=== PATIENT | female | born 1945 | race Caucasian/White ===

== ENCOUNTER 2021-06-12 14:26 | Inpatient (IN) | payer OTHER ==
--- NOTE | 2021-06-12 15:39 | RAD REPORT ---
EXAM DESCRIPTION: Jonn Single View06/12/2021 3:31 pm CLINICAL HISTORY: Shortness of breath COMPARISON: 2019 FINDINGS: Moderate bilateral pulmonary opacities. Heart is normal size IMPRESSION: Moderate bilateral pulmonary opacities probably pneumonia
[2021-06-12 17:47] LABS: Absolute Lymphocytes (CBC) 1.1 K/uL (0.7-4.9); Basophils % 0.1 % (0-1.3); Hematocrit 43.2 % (36.0-45.0); Lymphocytes % 12.6 % (15.3-44.8); MPV 7.4 fL (7.6-11.3); RBC Red Blood Cell Count 4.85 M/uL (3.86-4.86)
[2021-06-12 18:01] LABS: Protime INR 1.02
[2021-06-12 18:20] LABS: ALT/SGPT 63 U/L (12-78); AST/SGOT 57 U/L (15-37); Albumin 2.6 g/dL (3.4-5.0); Alkaline Phosphatase 163 U/L (45-117); BUN Blood Urea Nitrogen 22 mg/dL (7-18); Bicarbonate 25 mmol/L (21-32); Bilirubin Direct 0.3 mg/dL (0-0.2); Bilirubin Total 0.6 mg/dL (0.2-1.0); Glucose Level 118 mg/dL (74-106); Lipase 207 U/L (73-393); Potassium 3.9 mmol/L (3.5-5.1); Protein, Total 7.5 g/dL (6.4-8.2); Sodium Level 134 mmol/L (136-145); Troponin (Emerg Dept Use Only) < 0.02 ng/mL (0.0-0.045)
[2021-06-12 18:39] LABS: Ferritin 999.1 ng/mL (8-388)
--- NOTE | 2021-06-12 18:52 | RAD REPORT ---
EXAM DESCRIPTION: CT - Chest For Pe Angio - 06/12/2021 6:37 pm CLINICAL HISTORY: sob COMPARISON: June 12, 2021 chest x-ray TECHNIQUE: Dynamically enhanced axial 3 mm thick images of the chest were obtained during administra tion of <100> mL Isovue 370 IV contrast. Coronal and oblique reconstruction images were generated and reviewed. Exam utilizes a protocol for optimal evaluation of pulmonary arterial tree. Maximum intensity projections 3D imaging was utilized All CT scans are performed using dose optimization technique as appropriate and may include automated exposure control or mA/KV adjustment according to patient size. FINDINGS: A pulmonary embolus is not seen. A thoracic aortic aneurysm is not noted. A pleural effusion is not seen. A pericardial effusion is not seen. Moderate bilateral ground-glass opacities within the lungs IMPRESSION: Negative for a pulmonary embolism. Moderate bilateral ground-glass opacities within the lungs can be seen with Covid pneumonia
--- NOTE | 2021-06-12 19:07 | EDPHYS ---
Physician Documentation [facility] Name: Josh Baugh Age: 76 yrs Sex: Female : 1945 Arrival Date: 06/12/2021 Time: 14:27 Bed External Waiting Private MD: ED Physician Lencho Wilkerson HPI: 06/12 20:45 This 76 yrs old Female presents to ER via Wheelchair with complaints of Shortness Of kb Breath - covid+. 20:45 The patient or guardian reports cough, that is intermittent, described as mild, with no kb sputum. Onset: The symptoms/episode began/occurred 2 week(s) ago. Severity of symptoms: At their worst the symptoms were moderate, in the emergency department the symptoms are unchanged. Modifying factors: The symptoms are alleviated by nothing, the symptoms are aggravated by nothing. Associated signs and symptoms: The patient has no apparent associated signs or symptoms. The patient has not experienced similar symptoms in the past. The patient has been recently seen by a physician:. Pt states she was diagnosed with covid 2 weeks ago. States fever has resolved, but cough remains. Went to [place] to have regeneron infusion and was told she was out of the window and her oxygen sat was too low so she needed to come here. Pt denies shortness of breath. . Historical: - Allergies: 14:44 No Known Allergies; ss - Immunization history:: Client reports having NOT received the Covid vaccine. - Social history:: Smoking status: Patient denies any tobacco usage or history of. ROS: 20:44 Constitutional: Negative for fever, chills, and weight loss. kb 20:44 Respiratory: Positive for cough, Negative for dyspnea on exertion, hemoptysis, orthopnea, pleurisy, shortness of breath, sputum production, wheezing. 20:44 All other systems are negative. Exam: 18:07 Constitutional: This is a well developed, well nourished patient who is awake, alert, kb and in no acute distress. Head/Face: Normocephalic, atraumatic. ENT: Moist Mucous membranes Cardiovascular: Regular rate and rhythm with a normal S1 and S2. No gallops, murmurs, or rubs. No pulse deficits. Respiratory: Respirations even and unlabored. No increased work of breathing, no retractions or nasal flaring. Abdomen/GI: Soft, non-tender. No distention Skin: Warm, dry with normal turgor. Normal color. MS/ Extremity: Pulses equal, no cyanosis. Neurovascular intact. Full, normal range of motion. Neuro: Awake and alert, GCS 15, oriented to person, place, time, and situation. Moves all extremities. Normal gait. Psych: Awake, alert, with orientation to person, place and time. Behavior, mood, and affect are within normal limits. 18:07 ECG was reviewed by the Attending Physician. Vital Signs: 14:39 BP 109 / 58; Pulse 90; Resp 24 S; Temp 98.2(O); Pulse Ox 85% on 2 lpm NC; Weight 77.11 ss kg; Height 5 ft. 11 in. (180.34 cm); Pain 0/10; 17:42 BP 124 / 66; Pulse 97; Resp 18; Temp 99.7; Pulse Ox 92% on 12 lpm NC; bp 18:19 BP 119 / 63; Pulse 88; Resp 16; Pulse Ox 95% on NC; bp 20:06 BP 138 / 63; Pulse 87; Resp 20; Pulse Ox 93% on 12 lpm NC; df1 14:39 Body Mass Index 23.71 (77.11 kg, 180.34 cm) ss MDM: 16:50 Patient medically screened. kb 18:59 Data reviewed: vital signs, nurses notes. kb 19:04 Data interpreted: Pulse oximetry: on room air is 75 %. Interpretation: hypoxia. Plan: kb O2 by NC applied. Counseling: I had a detailed discussion with the patient and/or guardian regarding: the historical points, exam findings, and any diagnostic results supporting the discharge/admit diagnosis, lab results, radiology results, the need for further work-up and treatment in the hospital. Physician consultation: Fred BARTH was contacted at 19:05, regarding admission, to the telemetry unit. patient's condition, and will see patient in ED. 06/12 16:50 Order name: BMP 06/12 16:50 Order name: Blood Culture Adult (2) 06/12 16:50 Order name: C-Reactive Protein 06/12 16:50 Order name: CBC with Diff 06/12 16:50 Order name: D-Dimer 06/12 16:50 Order name: Ferritin 06/12 16:50 Order name: LFT's; Complete Time: 18:41 kb 06/12 16:50 Order name: Lactate; Complete Time: 18:14 kb 06/12 16:50 Order name: Lipase; Complete Time: 18:41 kb 06/12 16:50 Order name: PT-INR; Complete Time: 18:14 kb 06/12 16:50 Order name: Procalcitonin; Complete Time: 18:49 kb 06/12 16:50 Order name: Ptt, Activated; Complete Time: 18:14 kb 06/12 16:50 Order name: Troponin (emerg Dept Use Only); Complete Time: 18:41 kb 06/12 16:50 Order name: COVID-19 SARS RT PCR (Document "Date of Onset" if Symptomatic); Complete kb Time: 18:49 06/12 14:45 Order name: XRAY Chest (1 view); Complete Time: 15:47 ss 06/12 16:50 Order name: EKG; Complete Time: 16:51 kb 06/12 16:50 Order name: Cardiac monitoring; Complete Time: 17:41 kb 06/12 16:50 Order name: Droplet/Contact Precautions; Complete Time: 17:41 kb 06/12 16:50 Order name: EKG - Nurse/Tech; Complete Time: 18:01 kb 06/12 16:50 Order name: IV Start; Complete Time: 17:41 kb 06/12 16:50 Order name: Labs collected and sent; Complete Time: 17:41 kb 06/12 16:50 Order name: Basic Metabolic Panel; Complete Time: 18:41 EDMS 06/12 16:50 Order name: Blood Culture EDNE 06/12 16:50 Order name: C-Reactive Protein; Complete Time: 18:41 EDMS 06/12 16:50 Order name: CBC with Automated Diff; Complete Time: 18:14 EDMS 06/12 16:50 Order name: D-Dimer; Complete Time: 18:14 EDMS 06/12 16:50 Order name: Ferritin; Complete Time: 18:41 EDNE 06/12 18:07 Order name: CT Chest For PE Angio; Complete Time: 18:58 kb 06/12 19:33 Order name: CONS Physician Consult EDNE 06/12 16:50 Order name: O2 Per Protocol; Complete Time: 17:41 kb 06/12 16:50 Order name: O2 Sat Monitoring; Complete Time: 17:41 kb EC:07 Rate is 86 beats/min. Rhythm is regular. QRS [place] is Normal. OH interval is normal at kb 150 msec. QRS interval is normal at 78 msec. QT interval is normal at 394 msec. Administered Medications: 19:58 Drug: SOLU-Medrol (methylPrednisoLONE) 125 mg Route: IVP; Site: left antecubital; df1 Disposition Summary: 06/12/21 19:06 Hospitalization Ordered Hospitalization Status: Inpatient Admission kb Provider: Parveen Ritchie Condition: Stable kb Problem: new kb Symptoms: are unchanged kb Bed/Room Type: Standard kb Location: Intensive Care Unit(06/12/21 20:07) cg Room Assignment: 1-(06/12/21 20:07) cg Diagnosis - Coronavirus infection, unspecified kb - Pneumonia, unspecified organism kb - Hypoxia kb Forms: - Medication Reconciliation Form kb - SBAR form kb Addendum: 06/14/2021 09:14 Co-signature as Attending Physician, Lencho Wilkerson MD I agree with the assessment and k dr plan of care. Signatures: Dispatcher [employer] EDNE Carmelita Baron, SCREW MACHINE SETTER-C SCREW MACHINE SETTER-Lencho Perry MD MD [facility] Radha Bowens RN RN ss Jeremy Hussein PA PA cp Garcia, Cindy, AGNIESZKA RN cg Sanam Rucker df1 Corrections: (The following items were deleted from the chart) 06/12 20:07 19:06 Telemetry/MedSurg (Inpatient) kb cg 20:07 19:06 kb cg 20:47 20:45 Pt states she was diagnosed with covid 2 weeks ago. States fever has resolved, kb but cough remains. Went to [place] to have regeneron infusion and was told she was out of the window and her oxygen sat was too low so she needed to come here. kb
--- NOTE | 2021-06-12 19:07 | ER ---
Nurse's Notes [facility] Name: Josh Baugh Age: 76 yrs Sex: Female : 1945 Arrival Date: 06/12/2021 Time: 14:27 Bed External Waiting Private MD: Diagnosis: Coronavirus infection, unspecified;Pneumonia, unspecified organism;Hypoxia Presentation: 06/12 14:39 Chief complaint: Patient's son or daughter states: "She has COVID and she is probably ss out of the infections stage, but she is probably in the pulmonary stage." Pt was seen at [place] to have a Regeneron infusion, but was told to come to ER as her O2 level was low. Denies SOB. 75% on RA upon arrival. Coronavirus screen: Client denies travel out of the [place] in the last 14 days. Ebola Screen: Patient denies exposure to infectious person. Patient denies travel to an Ebola-affected area in the 21 days before illness onset. Initial Sepsis Screen: Does the patient meet any 2 criteria? No. Patient's initial sepsis screen is negative. Does the patient have a suspected source of infection? No. Patient's initial sepsis screen is negative. Risk Assessment: Do you want to hurt yourself or someone else? Patient reports no desire to harm self or others. Onset of symptoms was May 27, 2021. 14:39 Method Of Arrival: Wheelchair ss 14:39 Acuity: LORI 2 ss Triage Assessment: 16:53 General: Appears in no apparent distress. uncomfortable, Behavior is calm, cooperative, bp appropriate for age. Respiratory: Reports shortness of breath at rest Onset: The symptoms/episode began/occurred at an unknown time. the patient has moderate shortness of breath. Historical: - Allergies: 14:44 No Known Allergies; ss - Immunization history:: Client reports having NOT received the Covid vaccine. - Social history:: Smoking status: Patient denies any tobacco usage or history of. Screenin:50 Abuse screen: Denies threats or abuse. Denies injuries from another. Nutritional bp screening: No deficits noted. Tuberculosis screening: No symptoms or risk factors identified. 17:42 Fall Risk bp Assessment: 16:51 Pain: Denies pain. Cardiovascular: Rhythm is. Respiratory: Airway is patent Respiratory bp effort is even, unlabored, Breath sounds are diminished in right middle lobe, left lower lobe and right lower lobe. 18:20 Reassessment: No changes from previously documented assessment. bp Vital Signs: 14:39 BP 109 / 58; Pulse 90; Resp 24 S; Temp 98.2(O); Pulse Ox 85% on 2 lpm NC; Weight 77.11 ss kg; Height 5 ft. 11 in. (180.34 cm); Pain 0/10; 17:42 BP 124 / 66; Pulse 97; Resp 18; Temp 99.7; Pulse Ox 92% on 12 lpm NC; bp 18:19 BP 119 / 63; Pulse 88; Resp 16; Pulse Ox 95% on NC; bp 20:06 BP 138 / 63; Pulse 87; Resp 20; Pulse Ox 93% on 12 lpm NC; df1 14:39 Body Mass Index 23.71 (77.11 kg, 180.34 cm) ss ED Course: 14:27 Patient arrived in ED. as 14:44 Triage completed. ss 14:44 Arm band placed on left wrist. ss 15:32 XRAY Chest (1 view) In Process Unspecified. EDMS 16:49 Carmelita Baron FNP-C is [facility]. kb 16:49 Lencho Wilkerson MD is Attending Physician. kb 16:50 Raul Rosas, AGNIESZKA is Primary Nurse. bp 16:50 Patient has correct armband on for positive identification. Bed in low position. Call bp light in reach. Side rails up X2. Pulse ox on. 18:18 BMP Sent. bp 18:18 Blood Culture Adult (2) Sent. bp 18:18 C-Reactive Protein Sent. bp 18:18 CBC with Diff Sent. bp 18:18 D-Dimer Sent. bp 18:19 Ferritin Sent. bp 18:37 CT Chest For PE Angio In Process Unspecified. EDMS 19:06 Parveen Ritchie MD is Hospitalizing Provider. kb 20:07 No provider procedures requiring assistance completed. Inserted saline lock: 22 gauge df1 in right antecubital area, using aseptic technique. 21:17 Patient admitted, IV remains in place. df1 Administered Medications: 19:58 Drug: SOLU-Medrol (methylPrednisoLONE) 125 mg Route: IVP; Site: left antecubital; df1 Outcome: 19:06 Decision to Hospitalize by Provider. kb 21:17 Admitted to Med/surg accompanied by nurse. df1 21:17 Condition: stable 21:17 Instructed on the need for admit. 21:18 Patient left the ED. df1 Signatures: Dispatcher [employer] Carmelita Bledsoe, LOCO PEÑA-Raegan Helms Shelby, RN RN ss Peltier, Brian, RN RN bp Furlich, Dawn df1
[2021-06-12] MEDS ORDERED: METHYLPREDNISOLONE 125 MG INJ ONE (19:53)
[2021-06-12] MEDS ORDERED: NA CHLORIDE 0.9% 1,000 ML IV SCH (20:31)
[2021-06-12] MEDS ORDERED: MORPHINE 2 MG/ML SYR IV PRN (20:31)
[2021-06-12] MEDS: INSULIN -REGULAR HUMAN 50 UNIT/0.5 ML ML SQ SCH (21:00)
--- NOTE | 2021-06-12 21:39 | P.HP ---
Certification for Inpatient Patient admitted to: Inpatient With expected LOS: >2 Midnights Patient will require the following post-hospital care: None Practitioner: I am a practitioner with admitting privileges, knowledge of patient current condition, hospital course, and medical plan of care. Services: Services provided to patient in accordance with Admission requirements found in Title 42 Section 412.3 of the Code of Federal Regulations Patient History Date of Service: 06/12/21 Reason for admission: COVID pneumonia History of Present Illness: Ms. Baugh is a 76 yo F who tested positive for COVID 2 weeks ago. She has been experiencing fever, cough, nausea, diarrhea, and weakness. She says she is too weak to walk and feels wobbly. She has been falling and has been staying in her bathroom because she is too weak to move. She says she has not been eating or drinking fluids. She has had decreased urination. Denies SOB, wheezing, vomiting. She went to [place] today for Regeneron but she was out of the window. Her O2 sats were 75% on RA so she was sent to the ED. She is stable on HFNC. She is a DNI. She says she does not want to be given remdesmivir because her son is a clinical materials scientist and he does not trust it. Her mother recently two weeks ago. Ferritin 999 CRP 172 procal 0.34 CTAP IMPRESSION: Negative for a pulmonary embolism. Moderate bilateral ground-glass opacities within the lungs can be seen with Covid pneumonia Allergies No Known Allergies Allergy (Unverified 06/12/21 20:30) - Past Medical/Surgical History Diabetic: No -: AMD -: knee replacement -: hysterectomy -: thumb surgery -: cataract surgery -: tonsillectomy - Family History Family History: Reviewed- Non-Contributory - Social History Smoking Status: Never smoker Alcohol use: No CD- Drugs: No Caffeine use: No Place of Residence: Home Review of Systems 10-point ROS is otherwise unremarkable General: Fever, Chills, Sweats, Weakness, Malaise Respiratory: Cough Gastrointestinal: Nausea, Diarrhea Physical Examination - Physical Exam General: Alert, In no apparent distress HEENT: Atraumatic, PERRLA, Mucous membr. moist/pink, EOMI, Sclerae nonicteric Neck: Supple, 2+ carotid pulse no bruit, No LAD, Without JVD or thyroid abnormality Respiratory: Diminished, Rhonchi/gurgles Cardiovascular: Regular rate/rhythm, Normal S1 S2 Gastrointestinal: Normal bowel sounds, No tenderness Musculoskeletal: No tenderness Integumentary: No rashes Neurological: Normal tone, Normal affect, Abnormal speech Lymphatics: No axilla or inguinal lymphadenopathy - Studies Laboratory Data (last 24 hrs) 06/12/21 17:14: PT 11.7, INR 1.02, APTT 30.7 06/12/21 17:14: WBC 8.60, Hgb 14.4, Hct 43.2, Plt Count 245 06/12/21 17:14: Sodium 134 L, Potassium 3.9, BUN 22 H, Creatinine 0.99, Glucose 118 H, Total Bilirubin 0.6, AST 57 H, ALT 63, Alkaline Phosphatase 163 H, Lipase 207 Assessment and Plan - Problems (Diagnosis) (1) Pneumonia due to COVID-19 virus Current Visit: Yes Status: Acute (2) Weakness Current Visit: Yes Status: Acute - Plan pulm consulted, RT consulted O2 as needed, sats for room air and home o2 continue IV steroids, covid supplements daily CRP, ferritin, procal gentle IVF hydration antitussives PRN DVT ppx Discharge Plan: Home Plan to discharge in: Greater than 2 days - Advance Directives Does patient have a Living Will: No Does patient have a Durable POA for Healthcare: No - Code Status/Comfort Care Code Status Assessed: Yes (DNI) Critical Care: No Time Spent Managing Pts Care (In Minutes): 70
[2021-06-12] MEDS: BENZONATATE 100 MG CAP PO PRN (21:57)
[2021-06-12] MEDS: MELATONIN 5 MG TABLET PO PRN (21:57)
[2021-06-12] MEDS: ASCORBIC ACID 500 MG TABLET PO SCH (21:57)
[2021-06-12] MEDS: METHYLPREDNISOLONE 125 MG INJ IV SCH (21:58)
[2021-06-12] MEDS: FAMOTIDINE 20 MG TAB PO SCH (22:01)
[2021-06-13 05:01] LABS: Absolute Lymphocytes (CBC) 0.7 K/uL (0.7-4.9); Basophils % 0.4 % (0-1.3); Hematocrit 39.9 % (36.0-45.0); Lymphocytes % 14.6 % (15.3-44.8); MPV 7.5 fL (7.6-11.3); RBC Red Blood Cell Count 4.51 M/uL (3.86-4.86)
[2021-06-13 05:30] LABS: Albumin 2.2 g/dL (3.4-5.0); Bilirubin Total 0.4 mg/dL (0.2-1.0); Ferritin 891.4 ng/mL (8-388); Magnesium 2.7 mg/dL (1.8-2.4); Phosphorus 3.4 mg/dL (2.5-4.9); Potassium 4.1 mmol/L (3.5-5.1); Protein, Total 6.6 g/dL (6.4-8.2); Thyroid Stimulating Hormone 0.245 uIU/mL (0.360-3.740)
[2021-06-13 05:38] LABS: Urine Appearance Clear (Clear); Urine Bilirubin Negative (Negative); Urine Blood Negative (Negative); Urine Color Yellow (Yellow); Urine Glucose Negative (Negative); Urine Protein 1+ (Negative); Urine Specific Gravity 1.015 (1.005-1.030); Urine Urobilinogen 0.2 mg/dL (0.2-1.0)
[2021-06-13 05:39] LABS: Urine Microscopic Reflex ORDER UMIC
[2021-06-13 05:46] LABS: Urine RBC <5 /HPF (NONE SEEN)
[2021-06-13 05:47] LABS: Urine Bacteria 20-50 /HPF (<20); Urine Mucus 1+ /HPF (NONE SEEN)
[2021-06-13] MEDS: INSULIN -REGULAR HUMAN 50 UNIT/0.5 ML ML SQ SCH ×4 (07:30→20:24)
[2021-06-13] MEDS: ACETAMINOPHEN 500 MG TAB PO PRN ×2 (07:52→23:16)
[2021-06-13] MEDS ORDERED: ZINC SULFATE 220 MG CAP PO SCH (09:00)
[2021-06-13] MEDS: ASCORBIC ACID 500 MG TABLET PO SCH ×3 (09:00→20:25)
[2021-06-13] MEDS ORDERED: VITAMIN D 1000 UNIT TAB PO SCH (09:00)
[2021-06-13] MEDS: ASPIRIN EC 81 MG TAB PO SCH (09:07)
[2021-06-13] MEDS: METHYLPREDNISOLONE 125 MG INJ IV SCH ×2 (09:07→20:24)
[2021-06-13] MEDS: THIAMINE HCL 100 MG TABLET PO SCH (09:07)
[2021-06-13] MEDS: FAMOTIDINE 20 MG TAB PO SCH ×2 (09:07→20:24)
--- NOTE | 2021-06-13 10:40 | P.CNS ---
Date of Consult: 06/13/21 Reason for Consult: Coronavirus pneumonia Chief Complaint: COVID pneumonia History of Present Illness: Patient is 76 years of age tested positive for Covid 2 weeks ago admitted with coronavirus pneumonia patient went to emergency room was treated with Regenerogeno cantor with hypoxic respiratory failure she is currently stable on high flow oxygen Allergies No Known Allergies Allergy (Verified 06/12/21 22:34) Home Medications: Ascorbate Calcium [Vitamin C] 500 mg PO BID 06/12/21 Cholecalciferol (Vitamin D3) [Vitamin D 5,000 IU Cap*] 1 cap PO BID 06/12/21 Primarin 0.625mg 1 tab PO DAILY 06/12/21 Vit A/Vit C/Vit E/Zinc/Copper [Icaps Areds Softgel] 2 cap PO BID 06/12/21 Zinc Sulfate [Zinc Sulfate*] 220 mg PO DAILY 06/12/21 - Past Medical/Surgical History Diabetic: No -: AMD -: knee replacement -: hysterectomy -: thumb surgery -: cataract surgery -: tonsillectomy - Family History Brother Medical History: Hypertension, Cancer - Social History Alcohol use: No CD- Drugs: No Caffeine use: No Place of Residence: Home Review of Systems General: Weakness Respiratory: Shortness of Breath Physical Examination Temp Pulse Resp BP Pulse Ox 97.6 F 71 27 H 135/72 89 L 06/13/21 08:00 06/13/21 08:00 06/13/21 08:00 06/13/21 08:00 06/13/21 08:00 General: Alert, Cooperative, Mild distress Laboratory Data (last 24 hrs) 06/12/21 17:14: PT 11.7, INR 1.02, APTT 30.7 06/12/21 17:14: WBC 8.60, Hgb 14.4, Hct 43.2, Plt Count 245 06/12/21 17:14: Sodium 134 L, Potassium 3.9, BUN 22 H, Creatinine 0.99, Glucose 118 H, Total Bilirubin 0.6, AST 57 H, ALT 63, Alkaline Phosphatase 163 H, Lipase 207 - Problems (1) Pneumonia due to COVID-19 virus Current Visit: Yes Status: Acute Plan: Patient is 76 years of age admitted with coronavirus pneumonia currently on high flow oxygen continue with steroids at Barcitinib patient is hemodynamically stable CT scan shows diffuse coronavirus pneumonia DC IV fluids
[2021-06-13] MEDS: BARICITINIB 2 MG TABLET PO SCH (11:37)
[2021-06-13] MEDS: ONDANSETRON 4 MG/2 ML VIAL IV PRN (11:48)
--- NOTE | 2021-06-13 12:44 | P.PN ---
Subjective Date of Service: 06/13/21 Chief Complaint: COVID pneumonia she is doing well today, no CP or Abd pain, good appetite, she had SOB and she is on 15 no sore throart or cough Physical Examination - Vital Signs Temperature: 97.6 F Blood Pressure: 135/72 Pulse: 71 Respirations: 27 Pulse Ox (%): 89 - Studies Laboratory Data (last 24 hrs) 06/12/21 17:14: PT 11.7, INR 1.02, APTT 30.7 06/12/21 17:14: WBC 8.60, Hgb 14.4, Hct 43.2, Plt Count 245 06/12/21 17:14: Sodium 134 L, Potassium 3.9, BUN 22 H, Creatinine 0.99, Glucose 118 H, Total Bilirubin 0.6, AST 57 H, ALT 63, Alkaline Phosphatase 163 H, Lipase 207 Assessment & Plan Physician Review Additional Text: Physical Examination - Physical Exam General: Alert, In no apparent distress HEENT: Atraumatic, PERRLA, Mucous membr. moist/pink, EOMI, Sclerae nonicteric Neck: Supple, 2+ carotid pulse no bruit, No LAD, Without JVD or thyroid abnormality Respiratory: Diminished, Rhonchi/gurgles Cardiovascular: Regular rate/rhythm, Normal S1 S2 Gastrointestinal: Normal bowel sounds, No tenderness Musculoskeletal: No tenderness Integumentary: No rashes Neurological: Normal tone, Normal affect, Abnormal speech Lymphatics: No axilla or inguinal lymphadenopathy Problems (Diagnosis) (1) Pneumonia due to COVID-19 virus Cont conservative management, pt denied intubation , she in on 15 liter O2, cont steroids and Covid supplement montior daily CRP, ferritin, procal antitussives PRN DC IV fluids (2) Weakness 2 to covid DVT ppx Discharge Plan: Home Plan to discharge in: Greater than 2 days
[2021-06-13] MEDS ORDERED: RIVAROXABAN 10 MG TABLET PO SCH (17:00)
[2021-06-13] MEDS: RIVAROXABAN 10 MG TABLET PO SCH (17:25)
[2021-06-13] MEDS: VITAMIN D 5,000 UNIT CAP PO SCH (20:25)
[2021-06-13] MEDS: MELATONIN 5 MG TABLET PO PRN (20:25)
[2021-06-13] MEDS ORDERED: COPPER PO SCH (21:00)
[2021-06-13] MEDS ORDERED: HOME MED 1 EA UNK (Ascorbate Calcium [Vitamin C] 500 MG Tablet) PO SCH (21:00)
[2021-06-13] MEDS ORDERED: VIT C PO SCH (21:00)
[2021-06-13] MEDS ORDERED: ZINC PO SCH (21:00)
[2021-06-13] MEDS ORDERED: VIT E PO SCH (21:00)
[2021-06-13] MEDS ORDERED: VIT A PO SCH (21:00)
[2021-06-14 05:04] LABS: Absolute Lymphocytes (CBC) 0.9 K/uL (0.7-4.9); Basophils % 0.5 % (0-1.3); Hematocrit 39.1 % (36.0-45.0); Lymphocytes % 12.8 % (15.3-44.8); MPV 7.5 fL (7.6-11.3); RBC Red Blood Cell Count 4.37 M/uL (3.86-4.86)
[2021-06-14 05:35] LABS: Albumin 2.1 g/dL (3.4-5.0); Bilirubin Total 0.3 mg/dL (0.2-1.0); C-Reactive Protein 54.8 mg/L (<3.00); Potassium 4.1 mmol/L (3.5-5.1); Protein, Total 6.6 g/dL (6.4-8.2)
[2021-06-14] MEDS: INSULIN -REGULAR HUMAN 50 UNIT/0.5 ML ML SQ SCH ×4 (07:30→19:58)
[2021-06-14] MEDS: OCUVITE (VIT A,C & E/LUTEIN/MINERAL) TABLET PO SCH (08:44)
[2021-06-14] MEDS: ASPIRIN EC 81 MG TAB PO SCH (08:44)
[2021-06-14] MEDS: THIAMINE HCL 100 MG TABLET PO SCH (08:45)
[2021-06-14] MEDS: FAMOTIDINE 20 MG TAB PO SCH ×2 (08:45→19:57)
[2021-06-14] MEDS: METHYLPREDNISOLONE 125 MG INJ IV SCH (08:45)
[2021-06-14] MEDS: BARICITINIB 2 MG TABLET PO SCH (08:45)
[2021-06-14] MEDS: VITAMIN D 5,000 UNIT CAP PO SCH ×2 (08:46→19:58)
[2021-06-14] MEDS: ASCORBIC ACID 500 MG TABLET PO SCH ×4 (08:46→20:21)
[2021-06-14] MEDS: ZINC SULFATE 220 MG CAP PO SCH (08:46)
--- NOTE | 2021-06-14 09:30 | P.PN ---
Subjective Date of Service: 06/14/21 Chief Complaint: COVID pneumonia she is doing well today, sitting in bed, trying to eat breakfast, no CP or Abd pain, good appetite, she had SOB still with dry cough, no BM overnight Physical Examination - Vital Signs Temperature: 97.4 F Blood Pressure: 125/60 Pulse: 74 Respirations: 25 Pulse Ox (%): 89 Assessment & Plan Physician Review Additional Text: Physical Examination - Physical Exam General: Alert, In no apparent distress HEENT: Atraumatic, PERRLA, Mucous membr. moist/pink, EOMI, Sclerae nonicteric Neck: Supple, 2+ carotid pulse no bruit, No LAD, Without JVD or thyroid abnormality Respiratory: Diminished, fine crackles in the bases Cardiovascular: Regular rate/rhythm, Normal S1 S2 Gastrointestinal: Normal bowel sounds, No tenderness Musculoskeletal: No tenderness, trace edema noted Integumentary: No rashes Neurological: Normal tone, Normal affect, Abnormal speech Lymphatics: No axilla or inguinal lymphadenopathy Problems (Diagnosis) (1) Pneumonia due to COVID-19 virus Cont conservative management, pt denied intubation on admission but she is otherwise full code, she still on 15 liter O2, we will try titrate down this monring , cont steroids and all Covid supplement including Baraicitinib, pt denied Vit C -Montior daily CRP, ferritin, procal, all is going down significantly comparing to yesterday antitussives PRN DC IV fluids (2) Weakness 2 to covid , will get PT when pt better 3 Hypergylcemia -mild, 2 to steroids most likely DVT ppx on xarelto Discharge Plan: Home Plan to discharge in: Greater than 2 days
--- NOTE | 2021-06-14 11:49 | P.PN ---
Subjective Date of Service: 06/14/21 Chief Complaint: COVID pneumonia Condition is stable severe coronavirus pneumonia patient is alert on 15 L of nasal cannula oxygen Review of Systems General: Weakness Respiratory: Shortness of Breath Physical Examination - Vital Signs Temperature: 97.4 F Blood Pressure: 125/60 Pulse: 74 Respirations: 25 Pulse Ox (%): 89 - Physical Exam General: Alert, Cooperative Assessment & Plan - Problems (Diagnosis) (1) Pneumonia due to COVID-19 virus Current Visit: Yes Status: Acute Plan: Patient has severe coronavirus pneumonia condition stable 15 L of nasal cannula oxygen/add nebulized Pulmicort reduce the dose of Solu-Medrol as patient is on Barcitinib labs reviewed dynamically stable/inflammatory parameters are declined
[2021-06-14] MEDS: BUDESONIDE 0.5 MG/2 ML NEB NEB SCH ×2 (12:00→20:00)
[2021-06-14] MEDS: RIVAROXABAN 10 MG TABLET PO SCH (16:51)
[2021-06-14] MEDS: ONDANSETRON 4 MG/2 ML VIAL IV PRN (16:54)
[2021-06-14] MEDS: MELATONIN 5 MG TABLET PO PRN (19:57)
[2021-06-14] MEDS: METHYLPREDNISOLONE 40 MG INJ IV SCH (19:58)
[2021-06-14] MEDS: ACETAMINOPHEN 500 MG TAB PO PRN (19:59)
[2021-06-15 04:53] LABS: Absolute Lymphocytes (CBC) 0.7 K/uL (0.7-4.9); Basophils % 0.4 % (0-1.3); Hematocrit 39.2 % (36.0-45.0); Lymphocytes % 8.1 % (15.3-44.8); MPV 7.2 fL (7.6-11.3)
[2021-06-15 05:37] LABS: Albumin 2.2 g/dL (3.4-5.0); Bilirubin Total 0.4 mg/dL (0.2-1.0); C-Reactive Protein 21.2 mg/L (<3.00); Ferritin 588.4 ng/mL (8-388); Potassium 4.1 mmol/L (3.5-5.1); Protein, Total 6.6 g/dL (6.4-8.2)
[2021-06-15] MEDS: INSULIN -REGULAR HUMAN 50 UNIT/0.5 ML ML SQ SCH ×4 (07:30→19:45)
[2021-06-15] MEDS: BARICITINIB 2 MG TABLET PO SCH (08:31)
[2021-06-15] MEDS: THIAMINE HCL 100 MG TABLET PO SCH (08:32)
[2021-06-15] MEDS: FAMOTIDINE 20 MG TAB PO SCH ×2 (08:32→19:42)
[2021-06-15] MEDS: OCUVITE (VIT A,C & E/LUTEIN/MINERAL) TABLET PO SCH (08:32)
[2021-06-15] MEDS: ZINC SULFATE 220 MG CAP PO SCH (08:32)
[2021-06-15] MEDS: VITAMIN D 5,000 UNIT CAP PO SCH ×2 (08:32→19:43)
[2021-06-15] MEDS: ASPIRIN EC 81 MG TAB PO SCH (08:32)
[2021-06-15] MEDS: METHYLPREDNISOLONE 40 MG INJ IV SCH ×2 (08:33→19:42)
[2021-06-15] MEDS: ASCORBIC ACID 500 MG TABLET PO SCH ×2 (08:33→19:42)
[2021-06-15] MEDS: BUDESONIDE 0.5 MG/2 ML NEB NEB SCH ×2 (08:40→20:05)
--- NOTE | 2021-06-15 12:08 | P.PN ---
Subjective Date of Service: 06/15/21 Chief Complaint: COVID pneumonia Patient is improving feeling better nebulized budesonide is helped no new complaints Review of Systems General: Weakness Respiratory: Shortness of Breath Physical Examination - Vital Signs Temperature: 97.0 F Blood Pressure: 142/70 Pulse: 75 Respirations: 23 Pulse Ox (%): 90 - Physical Exam General: Alert, Oriented x3 Cardiovascular: No edema, Normal S1 S2 Assessment & Plan - Problems (Diagnosis) (1) Pneumonia due to COVID-19 virus Current Visit: Yes Status: Acute Plan: Respiratory failure patient is improving oxygen requirements may be declining titrate sat to 90% labs reviewed
[2021-06-15] MEDS: ONDANSETRON 4 MG/2 ML VIAL IV PRN (13:47)
[2021-06-15] MEDS: RIVAROXABAN 10 MG TABLET PO SCH (16:38)
--- NOTE | 2021-06-15 18:38 | P.PN ---
Subjective Date of Service: 06/15/21 Patient is doing much better. Oxygenation has much improved. Review of Systems 10-point ROS is otherwise unremarkable Physical Examination - Vital Signs Temperature: 97.7 F Blood Pressure: 141/71 Pulse: 78 Respirations: 24 Pulse Ox (%): 96 - Physical Exam General: Alert, In no apparent distress HEENT: Atraumatic, PERRLA, EOMI Neck: Supple, JVD not distended Respiratory: Clear to auscultation bilaterally, Normal air movement Cardiovascular: Regular rate/rhythm, Normal S1 S2 Gastrointestinal: Normal bowel sounds, No tenderness Musculoskeletal: No tenderness Integumentary: No rashes Neurological: Normal speech, Normal tone, Normal affect Lymphatics: No axilla or inguinal lymphadenopathy - Studies Medications List Reviewed: Yes Assessment & Plan - Problems (Diagnosis) (1) Pneumonia due to COVID-19 virus Current Visit: Yes Status: Acute - Plan 1. Continue with IV steroids 2. Monitor inflammatory markers 3. Repeat chest x-ray is symptoms are progressively worsening 4. O2 per protocol 5. Pulmonary consultation 6. Continue with albuterol inhaler therapy; also supportive care 7. GI and DVT prophylaxis Discharge Plan: Home Plan to discharge in: Greater than 2 days - Advance Directives Does patient have a Living Will: No Does patient have a Durable POA for Healthcare: No - Code Status/Comfort Care Code Status Assessed: Yes Code Status: Full Code Critical Care: No Time Spent Managing PTS Care (In Minutes): 25
[2021-06-15] MEDS: MELATONIN 5 MG TABLET PO PRN (21:20)
[2021-06-16 04:44] LABS: Absolute Lymphocytes (CBC) 0.7 K/uL (0.7-4.9); Basophils % 0.1 % (0-1.3); Hematocrit 38.6 % (36.0-45.0); Lymphocytes % 7.1 % (15.3-44.8); MPV 6.8 fL (7.6-11.3); RBC Red Blood Cell Count 4.37 M/uL (3.86-4.86)
[2021-06-16 05:09] LABS: Albumin 2.2 g/dL (3.4-5.0); Bilirubin Total 0.4 mg/dL (0.2-1.0); C-Reactive Protein 11.2 mg/L (<3.00); Ferritin 512.3 ng/mL (8-388); Magnesium 2.5 mg/dL (1.8-2.4); Phosphorus 3.1 mg/dL (2.5-4.9); Potassium 4.5 mmol/L (3.5-5.1); Protein, Total 6.2 g/dL (6.4-8.2)
[2021-06-16 05:17] VITALS: BMI 25.2
[2021-06-16] MEDS: INSULIN -REGULAR HUMAN 50 UNIT/0.5 ML ML SQ SCH ×4 (07:30→21:00)
[2021-06-16] MEDS: ASCORBIC ACID 500 MG TABLET PO SCH ×2 (08:30→21:00)
[2021-06-16] MEDS: BARICITINIB 2 MG TABLET PO SCH (08:30)
[2021-06-16] MEDS: ZINC SULFATE 220 MG CAP PO SCH (08:30)
[2021-06-16] MEDS: FAMOTIDINE 20 MG TAB PO SCH ×2 (08:30→20:10)
[2021-06-16] MEDS: THIAMINE HCL 100 MG TABLET PO SCH (08:30)
[2021-06-16] MEDS: ASPIRIN EC 81 MG TAB PO SCH (08:31)
[2021-06-16] MEDS: METHYLPREDNISOLONE 40 MG INJ IV SCH ×2 (08:31→20:10)
[2021-06-16] MEDS: VITAMIN D 5,000 UNIT CAP PO SCH ×2 (08:31→20:11)
[2021-06-16] MEDS: OCUVITE (VIT A,C & E/LUTEIN/MINERAL) TABLET PO SCH (08:31)
[2021-06-16] MEDS: BUDESONIDE 0.5 MG/2 ML NEB NEB SCH ×2 (08:36→19:45)
--- NOTE | 2021-06-16 11:26 | P.PN ---
Subjective Date of Service: 06/16/21 Chief Complaint: COVID pneumonia Improving now on 5 l Ncan Review of Systems General: Weakness Respiratory: Shortness of Breath Physical Examination - Vital Signs Temperature: 98.2 F Blood Pressure: 133/70 Pulse: 76 Respirations: 20 Pulse Ox (%): 93 - Physical Exam General: Alert, Oriented x3, Cooperative - Studies Medications List Reviewed: Yes Assessment & Plan - Problems (Diagnosis) (1) Pneumonia due to COVID-19 virus Current Visit: Yes Status: Acute Plan: Improving O2 decreased to 5 l/min/ labs reviewed/ poss Dc am. Doing well/sig decline in inflam markers
[2021-06-16] MEDS: RIVAROXABAN 10 MG TABLET PO SCH (16:06)
[2021-06-16] MEDS: MELATONIN 5 MG TABLET PO PRN (20:11)
[2021-06-17 04:58] LABS: Absolute Lymphocytes (CBC) 0.9 K/uL (0.7-4.9); Basophils % 0.5 % (0-1.3); Hematocrit 40.1 % (36.0-45.0); Lymphocytes % 8.2 % (15.3-44.8); RBC Red Blood Cell Count 4.48 M/uL (3.86-4.86)
[2021-06-17 05:21] LABS: Albumin 2.4 g/dL (3.4-5.0); Bilirubin Total 0.5 mg/dL (0.2-1.0); C-Reactive Protein 19.3 mg/L (<3.00); Ferritin 570.8 ng/mL (8-388); Potassium 4.2 mmol/L (3.5-5.1); Protein, Total 6.4 g/dL (6.4-8.2)
[2021-06-17] MEDS: INSULIN -REGULAR HUMAN 50 UNIT/0.5 ML ML SQ SCH ×4 (07:30→20:26)
[2021-06-17] MEDS: THIAMINE HCL 100 MG TABLET PO SCH (08:12)
[2021-06-17] MEDS: ASPIRIN EC 81 MG TAB PO SCH (08:12)
[2021-06-17] MEDS: BENZONATATE 100 MG CAP PO PRN (08:12)
[2021-06-17] MEDS: METHYLPREDNISOLONE 40 MG INJ IV SCH ×2 (08:12→19:53)
[2021-06-17] MEDS: VITAMIN D 5,000 UNIT CAP PO SCH ×2 (08:13→19:53)
[2021-06-17] MEDS: FAMOTIDINE 20 MG TAB PO SCH ×2 (08:13→19:53)
[2021-06-17] MEDS: ZINC SULFATE 220 MG CAP PO SCH (08:13)
[2021-06-17] MEDS: ASCORBIC ACID 500 MG TABLET PO SCH ×2 (08:13→09:00)
[2021-06-17] MEDS: BUDESONIDE 0.5 MG/2 ML NEB NEB SCH ×2 (08:42→20:15)
[2021-06-17] MEDS: OCUVITE (VIT A,C & E/LUTEIN/MINERAL) TABLET PO SCH (08:58)
[2021-06-17] MEDS: BARICITINIB 2 MG TABLET PO SCH (08:58)
[2021-06-17] MEDS ORDERED: levoFLOXacin 500 MG TAB PO SCH (09:00)
--- NOTE | 2021-06-17 10:13 | P.PN ---
Date of Service: 06/16/21 Subjective Patient is oxygenating better. Still becomes hypoxic on moving around. Continue weaning down oxygen. However, her strength is very diminished. Review of Systems 10-point ROS is otherwise unremarkable Physical Examination - Vital Signs Reviewed - Physical Exam General: Alert, In no apparent distress Respiratory: Clear to auscultation bilaterally, Normal air movement Cardiovascular: Regular rate/rhythm, Normal S1 S2 Gastrointestinal: Normal bowel sounds, No tenderness Neurological: Normal speech, Normal tone, Normal affect Assessment & Plan - Problems (Diagnosis) (1) Pneumonia due to COVID-19 virus Current Visit: Yes Status: Acute - Plan Continue with plan of care as mentioned below: 1. Wean off of steroids 2. Monitor laboratory data 3. Repeat chest x-ray 4. O2 per protocol 5. Pulmonary consultation appreciated 6. Continue with albuterol inhaler therapy; also supportive care 7. GI and DVT prophylaxis
--- NOTE | 2021-06-17 10:14 | P.PN ---
Date of Service: 06/17/21 Subjective Patient continues to improve. Patient denies any new complaints. Clinical symptoms are stable. Still slightly hypoxic on movement but overall improving. Physical therapy has not really been able to do much with her because of her weakness. Will Consult physical therapy at this time. Review of Systems 10-point ROS is otherwise unremarkable Physical Examination - Vital Signs Reviewed - Physical Exam General: Alert, In no apparent distress Respiratory: Clear to auscultation bilaterally, Normal air movement Cardiovascular: Regular rate/rhythm, Normal S1 S2 Gastrointestinal: Normal bowel sounds, No tenderness Neurological: Normal speech, Normal tone, Normal affect Assessment & Plan - Problems (Diagnosis) (1) Pneumonia due to COVID-19 virus Current Visit: Yes Status: Acute - Plan Continue with plan of care as mentioned below: 1. Wean off of steroids 2. Monitor laboratory data 3. Repeat chest x-ray 4. O2 per protocol 5. Pulmonary consultation appreciated 6. Continue with albuterol inhaler therapy; also supportive care 7. GI and DVT prophylaxis
--- NOTE | 2021-06-17 12:13 | P.PN ---
Subjective Date of Service: 06/17/21 Chief Complaint: COVID pneumonia Patient is improving down to 3-1/2 L of nasal cannula oxygen still experiencing significant desaturation with exertion Review of Systems General: Weakness Respiratory: Shortness of Breath Physical Examination - Vital Signs Temperature: 97.7 F Blood Pressure: 141/71 Pulse: 78 Respirations: 24 Pulse Ox (%): 96 - Physical Exam General: Alert, Oriented x3, Cooperative, Mild distress - Studies Medications List Reviewed: Yes Assessment & Plan - Problems (Diagnosis) (1) Pneumonia due to COVID-19 virus Current Visit: Yes Status: Acute Plan: Patient is improving oxygen requirements have decreased to less than 4 L still feeling very weak he said on mild exertion physical therapy labs and chemistries reviewed continue with present therapy home oxygen set up
[2021-06-17] MEDS: FUROSEMIDE 20 MG/ 2ML VIAL IV ONE ×2 (13:37→14:21)
[2021-06-17] MEDS ORDERED: levoFLOXacin 500 MG TAB PO ONE (16:00)
[2021-06-17] MEDS: RIVAROXABAN 10 MG TABLET PO SCH (17:46)
[2021-06-18] MEDS: INSULIN -REGULAR HUMAN 50 UNIT/0.5 ML ML SQ SCH ×2 (07:30→11:30)
[2021-06-18] MEDS: ASPIRIN EC 81 MG TAB PO SCH (08:42)
[2021-06-18] MEDS: BARICITINIB 2 MG TABLET PO SCH (08:43)
[2021-06-18] MEDS: OCUVITE (VIT A,C & E/LUTEIN/MINERAL) TABLET PO SCH (08:43)
[2021-06-18] MEDS: THIAMINE HCL 100 MG TABLET PO SCH (08:44)
[2021-06-18] MEDS: VITAMIN D 5,000 UNIT CAP PO SCH (08:44)
[2021-06-18] MEDS: METHYLPREDNISOLONE 40 MG INJ IV SCH (08:44)
[2021-06-18] MEDS: FAMOTIDINE 20 MG TAB PO SCH (08:47)
--- NOTE | 2021-06-18 08:52 | P.PN ---
Date of Service: 06/18/21 Subjective Review of Systems 10-point ROS is otherwise unremarkable Physical Examination - Vital Signs Reviewed - Physical Exam General: Alert, In no apparent distress Respiratory: Clear to auscultation bilaterally, Normal air movement Cardiovascular: Regular rate/rhythm, Normal S1 S2 Gastrointestinal: Normal bowel sounds, No tenderness Neurological: Normal speech, Normal tone, Normal affect Assessment & Plan - Problems (Diagnosis) (1) Pneumonia due to COVID-19 virus Current Visit: Yes Status: Acute - Plan Continue with plan of care as mentioned below: 1. Wean off of steroids 2. Monitor laboratory data 3. Repeat chest x-ray 4. O2 per protocol 5. Pulmonary consultation appreciated 6. Continue with albuterol inhaler therapy; also supportive care 7. GI and DVT prophylaxis
[2021-06-18] MEDS ORDERED: levoFLOXacin 500 MG TAB PO SCH (09:00)
[2021-06-18] MEDS: BUDESONIDE 0.5 MG/2 ML NEB NEB SCH (10:21)
[2021-06-18 14:42] VITALS: TEMP 97.1
[2021-06-18 14:57] VITALS: O2SAT 92
[2021-06-18] MEDS: ACETAMINOPHEN 500 MG TAB PO PRN (15:00)
[2021-06-18 16:37] VITALS: BP 120/71
== END 2021-06-18 16:30 | DRG 177 ==
LOC: ER 14:26 → ERHOLD 19:39 → 3RD-ICU 20:12
PROVIDERS: ADMIT Internal Medicine; ATTEND Hospitalist
PROC: XW0DXM6 Introduction of Baricitinib into Mouth and Pharynx, External Approach, New Technology Group 6 (ICD-10-PCS; principal; 2021-06-12)
PROC: 5A09457 Assistance with Respiratory Ventilation, 24-96 Consecutive Hours, Continuous Positive Airway Pressure (ICD-10-PCS; 2021-06-14)
DX: U07.1 COVID-19 (principal); J12.82 Pneumonia due to coronavirus disease 2019; J96.91 Respiratory failure, unspecified with hypoxia; R73.9 Hyperglycemia, unspecified; Z90.710 Acquired absence of both cervix and uterus; Z96.659 Presence of unspecified artificial knee joint; Z79.899 Other long term (current) drug therapy
CPT/HCPCS: 36415; 71045; 71275; 80048; 80053; 80061; 80076; 81003; 81015; 82728; 82947; 83605; 83690; 83735; 84100; 84145; 84439; 84443; 84484; 85025; 85379; 85610; 85730; 86140; 87040; 87077; 87086; 87088; 87186; 93005; 94002; 94003; 94010; 94640; 94760; 96374; 97161; 97530; 99285; J1940; J2405; J2920; J2930; J7030; Q9967; U0003

== ENCOUNTER 2022-06-18 08:06 | Day surgery (SDC) | payer OTHER ==
[2022-06-16 12:10] LABS: Potassium 4.5 mmol/L (3.5-5.1)
--- NOTE | 2022-06-16 16:23 | EKG ---
Test Date: 2022-06-16 Test Time: 11:16:56 Artificial Flowers Dyer: KRISTINE MEASUREMENT RESULTS: Intervals: Rate: 65 MO: 174 QRSD: 86 QT: 414 QTc: [address]: P: 52 MO: 174 QRS: 27 T: 56 INTERPRETIVE STATEMENTS: Normal sinus rhythm Low voltage QRS Borderline ECG Compared to ECG 06/12/2021 17:52:07 Low QRS voltage now present Myocardial infarct finding no longer present Electronically Signed On 06-16-22 16:22:47 POLITICAL THEORY PROFESSOR by Dev Thomas
[2022-06-18] MEDS ORDERED: Ringers Lactate 1,000 ML IV ONE (08:20)
[2022-06-18] MEDS ORDERED: LIDOCAINE 1% MPF 5 ML VIAL ONE (08:59)
[2022-06-18] MEDS ORDERED: propofoL 200 MG/20 ML VIAL IV ONE ×2 (08:59→09:34)
--- NOTE | 2022-06-18 09:37 | ENDO RPT ---
[address], [address] EGD PROCEDURE REPORT EXAM DATE: 06/18/2022 PATIENT NAME: Josh Baugh MR#: [id number] BIRTHDATE: 1945 ATTENDING: Elan Tafoya DR STATUS: outpatient HIRED HELP: Ana Lezama RN and Jacob Douglass [facility] INDICATIONS: The patient is a 77 yr old Female here for an EGD due to mid epigastric abdominal pain PROCEDURE PERFORMED: EGD with biopsy for H. pylori MEDICATIONS: Per Anesthesia. TOPICAL ANESTHETIC: none CONSENT: The patient understands the risks and benefits of the procedure and understands that these risks include, but are not limited to: sedation, allergic reaction, infection, perforation and/or bleeding. Alternative means of evaluation and treatment include, among others: physical exam, x-rays, and/or surgical intervention. The patient elects to proceed with this endoscopic procedure. DESCRIPTION OF PROCEDURE: During intra-op preparation period all mechanical medical equipment was checked for proper function. Hand hygiene and appropriate measures for infection prevention was taken. Procedure, possible complications, and alternatives including but not limited to the possibility of bleeding, perforation, tear, infection, sepsis, need for surgery, need for blood transfusion, and anesthesia related complications were explained to the patient. After the risks, benefits and alternatives of the procedure were thoroughly explained, Informed consent was verified, confirmed and timeout was successfully executed by the treatment team. The patient was placed in the left lateral position. The patient was anesthetized with topical anesthesia. Through the anesthetized oropharyngeal area, the scope was passed without any difficulty. The EG-[id number] ([id number]) endoscope was introduced through the mouth and advanced to the third portion of the duodenum. Retroflexed views revealed a small hiatal hernia. The gastroscope was then slowly withdrawn and removed. Duodenitis was found in the bulb and descending duodenum. Multiple biopsies were obtained and sent to pathology. A biopsy for H. pylori was taken. With standard forceps, a biopsy was obtained and sent to pathology. Multiple ulcers were found in the body and the antrum of the stomach. Monopolar cautery was performed. Multiple biopsies were obtained and sent to pathology. A biopsy for H. pylori was taken. With standard forceps, a biopsy was obtained and sent to pathology. Multiple erosions were found in the body and the antrum of the stomach. Monopolar cautery was performed. With standard forceps, a biopsy was obtained and sent to pathology. A small hiatal hernia was found in the gastroesophageal junction. Located 29 cm from the point of entry. With standard forceps, a biopsy was obtained and sent to pathology. A biopsy for H. pylori was taken. ADVERSE EVENTS: There were no complications. IMPRESSIONS: 1. Duodenitis was found in the bulb and descending duodenum 2. Multiple ulcers were found in the body and the antrum of the stomach RECOMMENDATIONS: 1. acid suppression therapy 2. anti-reflux regimen 3. await biopsy results 4. Aciphex 20mg 5. avoid NSAIDS 6. follow-up of helicobacter pylori status, treat if indicated REPEAT EXAM: lEan Tafoya DR eSigned: Elan Tafoya DR 06/18/2022 9:37 AM cc: CPT CODES: ICD9 CODES: PATIENT NAME: Eliseo Baugholl Cindy MR#: [id number]
[2022-06-18] MEDS ORDERED: ONDANSETRON 4 MG/2 ML VIAL ONE (10:06)
[2022-06-18] MEDS ORDERED: ONDANSETRON 4 MG/2 ML VIAL IV ONE (10:18)
[2022-06-18 10:20] VITALS: TEMP 97.7; O2SAT 97
[2022-06-18 10:22] VITALS: BP 112/60
== END 2022-06-18 10:36 | disposition home or self-care (01) ==
LOC: OR 08:06
PROVIDERS: ATTEND Surgery
PROC: 0DB78ZX Excision of Stomach, Pylorus, Via Natural or Artificial Opening Endoscopic, Diagnostic (ICD-10-PCS; 2022-06-18)
PROC: 0DB68ZX Excision of Stomach, Via Natural or Artificial Opening Endoscopic, Diagnostic (ICD-10-PCS; 2022-06-18)
PROC: 0DB48ZX Excision of Esophagogastric Junction, Via Natural or Artificial Opening Endoscopic, Diagnostic (ICD-10-PCS; 2022-06-18)
PROC: 0DB98ZX Excision of Duodenum, Via Natural or Artificial Opening Endoscopic, Diagnostic (ICD-10-PCS; principal; 2022-06-18 09:45)
DX: R13.19 Other dysphagia (principal); K29.50 Unspecified chronic gastritis without bleeding
CPT/HCPCS: 93005; 80048; 36415; 88312; 88305; 43239; J2704 ×2; J2001; J7120; J2405

== ENCOUNTER 2023-12-16 19:26 | Emergency (ER) | payer OTHER ==
--- NOTE | 2023-12-16 20:58 | RAD REPORT ---
EXAM DESCRIPTION: FIDEL MCNEILL - 12/16/2023 8:27 pm CLINICAL HISTORY: hand injury COMPARISON: No comparisons TECHNIQUE: Left hand, 3 views. FINDINGS: No fracture is identified. There is no dislocation or periosteal reaction noted. Joint alignment is maintained. No foreign body or other soft tissue abnormality. IMPRESSION: Negative left hand examination.
--- NOTE | 2023-12-16 21:02 | RAD REPORT ---
EXAM DESCRIPTION: RAD - Forearm Left - 12/16/2023 8:27 pm CLINICAL HISTORY: wrist pain COMPARISON: No comparisons TECHNIQUE: Left forearm, 2 views. FINDINGS: No fracture is identified. There is no dislocation or periosteal reaction noted. No foreign body or other soft tissue abnormality. IMPRESSION: Negative left forearm radiographs.
--- NOTE | 2023-12-16 21:16 | ER ---
Nurse's Notes [facility] Name: Josh Baugh Age: 78 yrs Sex: Female : 1945 Arrival Date: 12/16/2023 Time: 19:26 Bed 12 Private MD: Diagnosis: Left wrist contusion, acute left wrist sprain, acute fall from standing Presentation: 12/15 19:49 Chief complaint: Patient states: pt slipped and fell and caught herself with her as6 wrists. Coronavirus screen: At this time, the client does not indicate any symptoms associated with coronavirus-19. Ebola Screen: No symptoms or risks identified at this time. Initial Sepsis Screen: Does the patient meet any 2 criteria? No. Patient's initial sepsis screen is negative. Does the patient have a suspected source of infection? No. Patient's initial sepsis screen is negative. Risk Assessment: Do you want to hurt yourself or someone else? Patient reports no desire to harm self or others. Onset of symptoms was December 16, 2023. 19:49 Method Of Arrival: Ambulatory as6 19:49 Acuity: LORI 4 as6 Historical: - Allergies: 19:50 No Known Allergies; as6 - PSHx: 19:50 knee; Total abdominal hysterectomy; neck; hand; eye; as6 - Immunization history:: Adult Immunizations up to date. - Infectious Disease History:: Denies. - Social history:: Smoking status: Patient denies any tobacco usage or history of. - Family history:: not pertinent. Screenin:06 [facility] ED Fall Risk Assessment (Adult) History of falling in the last 3 months, nj1 including since admission Yes- single mechanical fall (1 pt) Confusion or Disorientation No (0 pts) Intoxicated or Sedated No (0 pts) Impaired Gait No (0 pts) Mobility Assist Device Used No (0 pt) Altered Elimination No (0 pt) Score/Fall Risk Level 0 - 2 = Low Risk Oriented to surroundings, Maintained a safe environment, Hourly rounding (assess needs \T\ fall precautionary measures) done. Abuse screen: Denies threats or abuse. Denies injuries from another. Nutritional screening: No deficits noted. Tuberculosis screening: No symptoms or risk factors identified. Assessment: 20:05 General: Appears in no apparent distress. uncomfortable, Behavior is calm, cooperative, nj1 appropriate for age. Pain: Complains of pain in right arm and left arm Pain currently is 6 out of 10 on a pain scale. Neuro: Level of Consciousness is awake, alert, obeys commands, Oriented to person, place, time, situation. Cardiovascular: Patient's skin is warm and dry. Respiratory: Airway is patent Respiratory effort is even, unlabored. Derm: Bruising that is dark purple, on left forearm. Injury Description: Abrasion sustained to left wrist. 21:00 Reassessment: Patient appears in no apparent distress at this time. Pain: Complains of kb3 pain in dorsal aspect of left forearm, left wrist and palmar aspect of left forearm Pain does not radiate. Pain currently is 5 out of 10 on a pain scale. Musculoskeletal: Reports pain in left arm. Vital Signs: 19:49 BP 120 / 85; Pulse 74; Resp 18 S; Temp 97.5(TE); Pulse Ox 99% on R/A; Weight 79.38 kg as6 (R); Height 5 ft. 10 in. (R); Pain 6/10; 21:00 BP 117 / 80; Pulse 68; Resp 18; kb3 21:00 Pulse Ox 100% ; kb3 19:49 Body Mass Index 25.11 (79.38 kg, 177.8 cm) as6 19:49 Pain Scale: Adult as6 [place] Coma Score: 12/16 06:41 Eye Response: spontaneous(4). Motor Response: obeys commands(6). Verbal Response: sp4 oriented(5). Total: 15. ED Course: 12/15 19:27 Patient arrived in ED. jj6 19:49 Arm band placed on. as6 19:50 Triage completed. as6 19:51 Armani Thornton, AGNIESZKA is Primary Nurse. as6 20:01 Eric Kee MD is Attending Physician. sp4 20:06 Patient has correct armband on for positive identification. Bed in low position. Call nj1 light in reach. Adult w/ patient. Provided Education on: call light, fall precautions. 20:29 Hand Left 3 View XRAY In Process Unspecified. EDMS 20:29 Forearm Left XRAY In Process Unspecified. EDMS 21:00 No provider procedures requiring assistance completed. Patient did not have IV access kb3 during this emergency room visit. Administered Medications: No medications were administered Medication: 21:00 VIS not applicable for this client. kb3 Outcome: 21:15 Discharge ordered by . jordan 21:35 Discharged to home ambulatory, with family, kb3 21:35 Condition: stable 21:35 Discharge instructions given to patient, family, Instructed on discharge instructions, follow up and referral plans. medication usage, Demonstrated understanding of instructions, follow-up care, medications, 21:55 Patient left the ED. kb3 Signatures: Dispatcher [employer] EDMS Mariangel Perryj6 Armani Thornton RN RN as6 Bekah Clayton RN RN kb3 Eric Kee MD MD sp4 Davida Meneses RN RN nj1
--- NOTE | 2023-12-16 21:16 | EDPHYS ---
Physician Documentation [facility] Name: Josh Baugh Age: 78 yrs Sex: Female : 1945 Arrival Date: 12/16/2023 Time: 19:26 Bed 12 Private MD: ED Physician Eric Kee HPI: 12/15 20:01 This 78 yrs old Female presents to ER via Ambulatory with complaints of Fall sp4 Injury, Arm Injury. 12/16 06:41 Patient is a very pleasant 78-year-old female who fell onto the left wrist today sp4 complaining of left wrist left distal forearm pain. Pain is on the ulnar side.. Historical: - Allergies: 12/15 19:50 No Known Allergies; as6 - PSHx: 19:50 knee; Total abdominal hysterectomy; neck; hand; eye; as6 - Immunization history:: Adult Immunizations up to date. - Infectious Disease History:: Denies. - Social history:: Smoking status: Patient denies any tobacco usage or history of. - Family history:: not pertinent. ROS: 12/16 06:41 Constitutional: Negative for fever, chills, and weight loss, Positive left forearm sp4 pain. All other systems are negative, Exam: 06:41 Constitutional: This is a well developed, well nourished patient who is awake, alert, sp4 and in no acute distress. Head/Face: Normocephalic, atraumatic. Eyes: Pupils equal round and reactive to light, extra-ocular motions intact. Lids and lashes normal. Conjunctiva and sclera are not injected. Cornea within normal limits. Periorbital areas with no swelling, redness, or edema. ENT: Nares patent. No nasal discharge, no septal abnormalities noted. Tympanic membranes are normal and external auditory canals are clear. Oropharynx with no redness, swelling, or masses, exudates, or evidence of obstruction, uvula midline. Mucous membranes moist. Neck: Trachea midline, no thyromegaly or masses palpated, and no cervical lymphadenopathy. Supple, full range of motion without nuchal rigidity, or vertebral point tenderness. Chest/axilla: Normal chest wall appearance and motion. Nontender with no deformity. No lesions are appreciated. Cardiovascular: Regular rate and rhythm with a normal S1 and S2. No gallops, murmurs, or rubs. Normal PMI, no JVD. No pulse deficits. Respiratory: Lungs have equal breath sounds bilaterally, clear to auscultation and percussion. No rales, rhonchi or wheezes noted. No increased work of breathing, no retractions or nasal flaring. Abdomen/GI: Soft, with normal bowel sounds. No distension or tympany. No guarding or rebound. No evidence of tenderness throughout. Back: No spinal tenderness. No costovertebral tenderness. Skin: Warm, dry with normal turgor. Normal color with no rashes, no lesions, and no evidence of cellulitis. MS/ Extremity: Pulses equal, no cyanosis. Neurovascular intact. Full, normal range of motion. Positive for left ulnar wrist pain and contusion with small abrasion. No deformity, Intact pulses Neuro: Awake and alert, GCS 15, oriented to person, place, time, and situation. Cranial nerves II-XII grossly intact. Motor strength 5/5 in all extremities. Sensory grossly intact. Psych: Awake, alert, with orientation to person, place and time. Behavior, mood, and affect are within normal limits Vital Signs: 12/15 19:49 BP 120 / 85; Pulse 74; Resp 18 S; Temp 97.5(TE); Pulse Ox 99% on R/A; Weight 79.38 kg as6 (R); Height 5 ft. 10 in. (R); Pain 6/10; 21:00 BP 117 / 80; Pulse 68; Resp 18; kb3 21:00 Pulse Ox 100% ; kb3 19:49 Body Mass Index 25.11 (79.38 kg, 177.8 cm) as6 19:49 Pain Scale: Adult as6 [place] Coma Score: 12/16 06:41 Eye Response: spontaneous(4). Motor Response: obeys commands(6). Verbal Response: sp4 oriented(5). Total: 15. Procedures: 06:46 Splinting: Splint applied to left wrist, left hand and palmar aspect of left forearm sp4 using wrist splint, Velcro wrist splint . applied by myself. Examined by me, post splint application: neurovascular intact, 2+ distal pulses palpable, brisk capillary refill noted, Patient tolerated well, advised wrist splint for 2 weeks . MDM: 12/15 20:03 Patient medically screened. sp4 12/16 06:45 Differential diagnosis: abrasion, closed head injury, contusion, fracture, laceration, sp4 multiple trauma, sprain, strain. Data reviewed: vital signs, nurses notes, radiologic studies, plain films. ED course: EXAM DESCRIPTION: RAD - Forearm Left - 12/16/2023 8:27 pm CLINICAL HISTORY: wrist pain COMPARISON: No comparisons TECHNIQUE: Left forearm, 2 views. FINDINGS: No fracture is identified. There is no dislocation or periosteal reaction noted. No foreign body or other soft tissue abnormality. IMPRESSION: Negative left forearm radiographs.. 06:46 ED course: EXAM DESCRIPTION: RAD - LTHAND - 12/16/2023 8:27 pm CLINICAL HISTORY: hand sp4 injury COMPARISON: No comparisons TECHNIQUE: Left hand, 3 views. FINDINGS: No fracture is identified. There is no dislocation or periosteal reaction noted. Joint alignment is maintained. No foreign body or other soft tissue abnormality. IMPRESSION: Negative left hand examination. 12/15 20:08 Order name: Hand Left 3 View XRAY; Complete Time: 21:10 sp4 12/15 20:08 Order name: Forearm Left XRAY; Complete Time: 21:10 sp4 12/15 21:17 Order name: Splint - Wrist; Complete Time: 21:55 sp4 Administered Medications: No medications were administered Disposition Summary: 12/16/23 21:15 Discharge Ordered Notes: Wrist splint advised for 2 weeks Location: Home sp4 Problem: new sp4 Symptoms: have improved sp4 Condition: Stable sp4 Diagnosis - Left wrist contusion, acute left wrist sprain, acute fall from standing sp4 Followup: sp4 - With: Private Physician - When: 7 - 10 days - Reason: Recheck today's complaints Discharge Instructions: - Discharge Summary Sheet sp4 - Wrist Sprain, Adult sp4 Forms: - Patient Portal Instructions sp4 Signatures: Dispatcher [employer] Armani Workman RN RN as6 Eric Kee MD MD sp4 Corrections: (The following items were deleted from the chart) 12/15 20:08 20:08 Hand Left 3 View+RAD.RAD.BRZ ordered. EDMS EDMS
[2023-12-16 22:04] VITALS: BP 117/80; TEMP 97.5; O2SAT 100
== END 2023-12-16 21:55 | disposition home or self-care (01) ==
LOC: ER 19:26
DX: S63.502A Unspecified sprain of left wrist, initial encounter (principal); W18.30XA Fall on same level, unspecified, initial encounter
CPT/HCPCS: 99282

== ENCOUNTER 2024-05-17 11:27 | Observation (INO) | payer OTHER ==
[2024-05-14 16:18] LABS: Specific Gravity 1.005 (1.005-1.030); Urine Bilirubin NEGATIVE (Negative); Urine Blood Negative (Negative); Urine Clarity Clear (Clear); Urine Color Colorless (Yellow); Urine Glucose NEGATIVE (Negative); Urine Ketones NEGATIVE (Negative); Urine Microscopic Reflex YN NO UMIC; Urine Nitrite NEGATIVE (Negative); Urine Protein NEGATIVE (Negative); Urine Urobilinogen Normal (Normal)
[2024-05-14 16:20] LABS: Absolute Basophils 0.1 K/uL (0-0.5); Absolute Eosinophils 0.2 K/uL (0-0.5); Absolute Monocytes 0.7 K/uL (0.1-1.3); Absolute Neutrophil 4.9 K/uL (1.8-8.0); Basophils % 0.8 % (0-1.3); Hemoglobin 13.9 g/dL (12.0-15.0); Lymphocytes % 34.2 % (15.3-44.8); MCH 30.3 pg (27.0-35.0); MCHC 32.3 g/dL (32.0-36.0); MCV 93.7 fL (80-100); MPV 8.6 fL (7.6-11.3); Monocytes % 7.7 % (3.3-12.3); Neutrophils % 55.3 % (41.7-73.7); Nucleated Red Blood Cells % 0.1 % (0-0); Platelets 269 thou/uL (152-406); RBC Red Blood Cell Count 4.59 M/uL (3.86-4.86); Red Cell Distribution Width 12.4 % (12.1-15.2)
[2024-05-14 16:24] LABS: PTT, Activated Partial Thromb 32.5 SECONDS (24.3-36.9); Protime INR 0.98
[2024-05-14 16:34] LABS: Anion Gap 7.4 mEq/L (5.0-15.0); Potassium 4.4 mEq/L (3.5-5.1)
--- NOTE | 2024-05-16 14:56 | EKG ---
Test Date: 2024-05-14 Test Time: 14:58:32 Wool Tamper: YESICA MEASUREMENT RESULTS: Intervals: Rate: 69 NH: 168 QRSD: 88 QT: 412 QTc: 441 [place]: P: 28 NH: 168 QRS: -10 T: 24 INTERPRETIVE STATEMENTS: Normal sinus rhythm RSR' or QR pattern in V1 suggests right ventricular conduction delay Minimal voltage criteria for LVH, may be normal variant Borderline ECG Compared to ECG 06/16/2022 11:16:56 RSR' in V1 or V2 now present Left ventricular hypertrophy now present Electronically Signed On 05-16-24 14:48:09 CDT by Franklin Huber
[2024-05-17] MEDS: Ringers Lactate 1,000 ML IV ONE (12:10)
[2024-05-17] MEDS: SCOPOLAMINE HYDROBROMIDE PATCH TD ONE (12:14)
[2024-05-17] MEDS: CEFAZOLIN SODIUM 2 GM/VIAL ONE (12:23)
[2024-05-17] MEDS: CEFAZOLIN SODIUM 1 GM/VIAL ONE (13:06)
[2024-05-17] MEDS: NA CHLORIDE 0.9% 100 ML ONE (13:06)
[2024-05-17] MEDS ORDERED: MIDAZOLAM HCL 2 MG/2 ML INJ ONE (13:48)
[2024-05-17] MEDS ORDERED: propofoL 200 MG/20 ML VIAL IV ONE (13:48)
[2024-05-17] MEDS ORDERED: FENTANYL CITR 100 MCG/2 ML ONE (13:48)
[2024-05-17] MEDS ORDERED: LIDOCAINE 2% MPF 5 ML VIAL ONE (13:49)
[2024-05-17] MEDS ORDERED: NS 0.9% VIAL 10 ML ONE (14:01)
[2024-05-17] MEDS ORDERED: VECURONIUM 10 MG/VIAL IV ONE (14:01)
[2024-05-17] MEDS: VASOPRESSIN 20 UNIT/ML VIAL ONE (14:26)
[2024-05-17] MEDS: HYDROMORPHONE HCL 1 MG/ML INJ ONE (16:50)
[2024-05-17] MEDS: METOCLOPRAMIDE 10 MG/2mL INJ ONE (17:00)
[2024-05-17] MEDS: Ringers Lactate 1,000 ML IV SCH (17:00)
[2024-05-17] MEDS: ONDANSETRON 4 MG/2 ML VIAL ONE (17:00)
[2024-05-17] MEDS ORDERED: ACETAMINOPHEN 500 MG TAB PO PRN (17:01)
[2024-05-17] MEDS ORDERED: PROMETHAZINE INJ 25 MG/ML AMP IV PRN (17:03)
[2024-05-17 17:09] VITALS: O2SAT 99
[2024-05-17 17:34] VITALS: BMI 25.8
[2024-05-17] MEDS: MORPHINE 2 MG/ML SYR IV PRN (22:51)
[2024-05-18] MEDS: CEFAZOLIN 1 GM in NA CHLORIDE 0.9% 50 ML IVPB SCH (01:38)
[2024-05-18 17:41] VITALS: BP 124/59; TEMP 97.3
--- NOTE | 2024-05-28 02:02 | OP ---
Date of Procedure: 05/17/2024 Surgeon: Amna Carey MD Stakeholder Manager: Kristen Guajardo Preoperative Diagnoses: Stage II posterior wall prolapse, posterior enterocele, and perineal body de fect. Postoperative Diagnoses: Stage II posterior wall defect, large posterior enterocele, perineocele. Procedures Performed: 1.Posterior wall repair. 2.Enterocele repair with biologic graft augmentation and the posterior compartment. 3.Uterosacral colpopexy. 4.Modified culdoplasty. 5.Perineocele repair. Anesthesia: General endotracheal. Estimated Blood Loss: 15. Specimens: No specimens. Complications: No complications. Drains: Villarreal catheter and vaginal packing. Patient's Condition: Stable. Findings: POP-Q -3, -3, -9, 5, 10, 11.5, 0, +1, NA. The patient was positioned before she was given anesthesia to avoid any excessive strain on her lower extremity joints. There was a Y mesh that was noted; however, the posterior arm of the Y mesh was mostly on the enteroc arely and not attached to the rectovaginal septum in the distal portion of the posterior compartment. Her vaginal length was shortened by performing the enterocele repair, and perineocele repair was done to decrease her genital hiatus. The biologic graft was suspended to the Y mesh at its apex, and the n distally to the rectovaginal septum with the connective tissue of the posterior compartment. The d istal rectovaginal septum was then reattached to the reconstructed perineal body after perineocele re pair. Rectal exam was negative after the reconstruction. Indications: The patient is an 79-year-old who had undergone a prolapse repair, most likely sacrocol popexy in a different state for significant symptomatic bulge symptoms as well as an examination cons istent with prolapse. I did not have the records for review; however, the patient was a good histori an. She has noticed increasing vaginal bulge symptoms and was evaluated in the office and counseled after medical clearance. She was given the options of pessary, observation, and surgery. Surgical r epair offered was vaginal reconstruction with or without a biologic graft, then posterior compartment defects to be repaired if they were found. The patient consented for this procedure as it has been difficult for her to tolerate the significant bulge symptoms and defecatory dysfunction at times. Procedure In Detail: After informed consent was verified in the preoperative area, she was taken jose alberto k to the OR. All the complications including bleeding; infection; injury to the bowel, bladder, and ureters as well as complications of mesh erosion and fistula formation were all reviewed. Catheteriz ation was discussed as well. She was placed in a supine fashion on the operating table. General anesthesia was given and she was placed in dorsal lithotomy position using Benson stirrups. Lower abdomen, vulva, vagina, and perineum were prepped and draped in a sterile fashion. Prep was with Betadine. The patient was first positi oned in the stirrups before general anesthesia was given. Villarreal was placed to drain the bladder and retracted superiorly, and the Palacios retractor was used for retraction. After all the needle retractors were placed, then POP-Q was done. Examination, incl uding the rectovaginal exam was performed. After understanding all the defects as was dictated in th e findings above, it was very clear that the posterior enterocele of the apex needed a repair besides the reconstruction of the perineum and the posterior compartment. A zahra-shaped incision was placed in the lower half of the posterior compartment and then on the p erineum. After dilute vasopressin was injected 40 mL in the posterior compartment, including the per ineum, a 15 blade was used to make an incision on the epithelium in the vagina as well as the perineu m and epithelium in the vaginal wall was excised using Allis clamps and a sharp knife. Similar excis ion of the skin on the perineum was done with a 15 blade. All the fascia of the posterior compartmen t was dissected and from the vaginal epithelium and subepithelium, and this dissection was taken superior to the incision itself and here I was able to get into the enterocele. The perineum was also dissected totally out the structures that have very enlarged genital hiatus by being pulled apart. This includes the deep and superficial transverse perinei muscles and then the e xternal anal sphincter as well. Once the posterior rectovaginal septum and the levators were all iso lated and identified, then reconstruction was started. Enterocele repair: The enterocele was dissected all the way to the apex of the vagina, where I could feel the Y mesh. However, on dissection of the posterior enterocele, it was very clear that the Y m esh was in this plane and this was dissected away from the vaginal epithelium and subepithelium. The re was no connective tissue in this plane and therefore, plan was to repair the enterocele and then f ollow this by a graft application in the center. The enterocele was taken down and plicated from side to side as there was mesh and it was hard to cami ce the pursestring suture as I usually do. Four parallel transverse uwcl-ml-hiam plications were don e with a 3-0 Monocryl. Once these were tied down without any excessive bunching of the mesh, then th e rectovaginal septum or the connective tissue of the posterior compartment lower wall was dissected away and opened up and mobilized, so it could be moved up. Then inferiorly, rectovaginal septum was dissected from the perineal body structures and this base of connective tissue was isolated and very well tethered to the pararectal sulci. Dissecting posteriorly and laterally to the ischial spine, did palpate the sacrospinous ligament; how ever, this plane was not necessary to be opened as the apex at point C was still at -9, so after expo sing the apex and taking the posterior tissues down, we were able to see the clutch of the Y mesh. T hree 2-0 PDS sutures were placed; one in the center and one on either side to this apex where the Y m esh was, and these were held on clamp. The biologic graft was then brought in and trimmed into a 6 x 4 x 3 cm graft. The 6 cm side of the graft was then attached to the vaginal apex after soaking the graft according to the package instruction. This was then pulled up with 2-0 PDS and suspended to th e area of the attachment of the uterosacral, one on either side and tied down. This graft was then r olled downward and towards the proximal portion of the trimmed rectovaginal septum and 2-0 PDS suture s were placed in a continuous running fashion starting at the very top and coming down sideways. Onc e the 2-0 PDS suture was used to tether the graft in these locations as well. Then, the rectovaginal septum appeared to be nicely pulled up. I did the repair where both of these overlapped with each o ther. The trapezoid sides were trimmed down to lay flat without any roll up and then tethered with 2-0 Vicr yl sutures on either lateral aspects. Perineocele repair: The perineal body structures and the external anal sphincter were all identified with rectovaginal exam. The external anal sphincter was repaired with the help of three interrupted 2-0 Vicryl sutures. Then, the perineal body structures of the deep transverse perinei and superfici al transverse perinei were all brought together in a [id number] fashion with 2 rows of [id number] ght 2-0 Vicryl sutures. Once this was all done and the rectovaginal septum was reattached to the per ineal body structures with interrupted 2-0 Vicryl sutures, and then the rectovaginal septum was attac hed to the apex of the graft, the entire posterior compartment seemed to be well buttressed and suppo rted. The vaginal epithelium was slightly trimmed and it was closed with the help of continuous running loc ked 2-0 Vicryl suture. The perineum was then repaired with subcutaneous layer of 3-0 Vicryl and then subcuticular layer of 3-0 Vicryl, and knot tied inside the hymen. Rectovaginal exam was negative fo r any trauma or foreign body. I did not use the sacrospinous ligament for fixation to the top, and u terosacral support was performed. The Villarreal was drained. All the instruments were removed. Instrument, needle, and sponge counts were correct at the end of the case. The patient tolerated procedure well. She was recovered from anest hesia and taken to PACU in stable condition. Her was debriefed about the procedure. DOLORES Voice ID: [id number] Report ID: [id number]
== END 2024-05-18 16:17 | disposition home or self-care (01) ==
LOC: OR 11:27 → 2ND 16:52
PROVIDERS: ADMIT Obstetrics & Gynecology; ATTEND Obstetrics & Gynecology
PROC: 0USG7ZZ Reposition Vagina, Via Natural or Artificial Opening (ICD-10-PCS; 2024-05-17)
PROC: 0JUC0JZ Supplement of Pelvic Region Subcutaneous Tissue and Fascia with Synthetic Substitute, Open Approach (ICD-10-PCS; principal; 2024-05-17 13:00)
DX: N81.6 Rectocele (principal); N81.81 Perineocele
CPT/HCPCS: 57250; 57267; 93005; 85025; 80048; 36415; 86900; 86850; 85610; 86901; 85730; 81003; 94010; 57283; A4216; J2704; J2003; J2250; J3010; J2270 ×3; J1171; J2405; J7120 ×3; J0690 ×3; G0379; G0378 ×2; J2765